=== PATIENT | male | born 1975 | race Caucasian/White ===

== ENCOUNTER 2018-01-28 13:39 | Emergency (ER) | payer MEDICAID ==
[~2018-01-28 13:39] MED LIST: ALLO100 PO; ATEN1TAB71 PO; Artane PO; DARV PO; DULO20 PO; FOLI1TAB PO; KCL PO; LORA10TA7 PO; PROT40TA PO; RISP2TAB2 PO
[2018-01-28 14:23] VITALS: BP 166/99; PULSE 118; RESP 20; TEMP 102.8; O2SAT 97
[2018-01-28] MEDS ORDERED: ACETAMINOPHEN 500 MG CPLT PO ONE (14:30)
[2018-01-28 16:41] LABS: AUTOMATED NEUTROPHIL # 10.8 TH/MM3 (1.8-7.7); BASOPHIL % 0.1 % (0.0-2.0); EOSINOPHIL # 0.1 TH/MM3 (0-0.4); EOSINOPHIL % 0.8 % (0.0-4.0); HEMATOCRIT 32.5 % (39.0-51.0); LYMPH % 6.3 % (9.0-44.0); LYMPHOCYTE # 0.8 TH/MM3 (1.0-4.8); MEAN CELL VOLUME 84.4 FL (80.0-100.0); MEAN CORPUSCULAR HEMOGLOBIN 28.7 PG (27.0-34.0); MEAN PLATELET VOLUME 7.6 FL (7.0-11.0); MONO % 3.8 % (0.0-8.0); MONOCYTE # 0.5 TH/MM3 (0-0.9); PLATELET COUNT 213 TH/MM3 (150-450); RED BLOOD COUNT 3.85 MIL/MM3 (4.50-5.90); RED CELL DISTRIBUTION WIDTH 14.2 % (11.6-17.2); WHITE BLOOD COUNT 12.2 TH/MM3 (4.0-11.0)
[2018-01-28 17:03] LABS: ALBUMIN 3.5 GM/DL (3.4-5.0); ALT (GPT) 29 U/L (12-78); AST (GOT) 37 U/L (15-37); BICARBONATE 26.6 MEQ/L (21.0-32.0); BLOOD UREA NITROGEN 14 MG/DL (7-18); CHLORIDE 102 MEQ/L (98-107); CREATININE 1.65 MG/DL (0.60-1.30); GLOMERULAR FILTRATION RATE 46 ML/MIN (>89); GLUCOSE,RANDOM 168 MG/DL (74-106); SODIUM (NA) 136 MEQ/L (136-145)
[2018-01-28 17:06] LABS: LACTIC ACID SEPSIS PROTOCOL 2.1 mmol/L (0.4-2.0)
[2018-01-28 17:06] LABS: ALKALINE PHOSPHATASE 68 U/L (45-117); TOTAL BILIRUBIN ADULT 0.3 MG/DL (0.2-1.0); TOTAL PROTEIN 8.7 GM/DL (6.4-8.2)
[2018-01-28 17:07] LABS: BILIRUBIN, URINE NEG (NEG); BLOOD, URINE SMALL (NEG); GLUCOSE,URINE TRACE mg/dL (NEG); KETONE, URINE NEG (NEG); MUCUS URINE FEW /lpf (OCC); NITRITE,URINE NEG (NEG); SQUAMOUS EPITHELIAL CELL URINE <1 /hpf (0-5); URINE COLOR YELLOW (YELLW/STRAW); URINE LEUKOCYTE ESTERASE NEG (NEG)
[2018-01-28] MEDS ORDERED: CARB200T (20:01)
[2018-01-28] MEDS ORDERED: DULO1CAP3 PO (20:01)
[2018-01-28] MEDS ORDERED: AMLO5TAB2 PO (20:01)
[2018-01-28] MEDS ORDERED: CYCL5TAB PO (20:01)
[2018-01-28] MEDS ORDERED: TRIH2 PO (20:01)
[2018-01-28] MEDS ORDERED: FENO145T2 PO (20:01)
[2018-01-28] MEDS ORDERED: FOLI1TAB6 (20:01)
[2018-01-28] MEDS ORDERED: ALLO300T2 PO (20:01)
[2018-01-28] MEDS ORDERED: SODIUM CHLOR 0.9% 1000 ML INJ 1,000 ML IV SCH (20:16)
[2018-01-28] MEDS ORDERED: SODIUM CHLORIDE 0.9% FLUSH 10 ML FLUSH IV FLUSH PRN (20:30)
[2018-01-28] MEDS ORDERED: IOHEXOL 350 MG/ML 10 ML VIAL (for RAD DIAG) IVCONTRAST ONE (21:00)
--- NOTE | 2018-01-28 21:09 | RADRPT ---
EXAM DATE/TIME: 01/28/2018 20:23 [facility] COMPARISON: No previous studies available for comparison. INDICATIONS : Fever MEDICAL HISTORY : Hypertension. Diabetes mellitus type II. SURGICAL HISTORY : None. ENCOUNTER: Initial ACUITY: 1 day PAIN SCORE: 0/10 LOCATION: chest FINDINGS: A single view of the chest demonstrates the lungs to be symmetrically aerated without evidence of mas s, infiltrate or effusion. The cardiomediastinal contours are unremarkable. Osseous structures are intact. CONCLUSION: The lungs are clear. Rafi Yanes MD on January 28, 2018 at 21:08 Board Certified Radiologist. This report was verified electronically.
--- NOTE | 2018-01-28 21:49 | RADRPT ---
EXAM DATE/TIME: 01/28/2018 20:57 [facility] COMPARISON: No previous studies available for comparison. INDICATIONS : Abdominal pain. IV CONTRAST: 84 cc Omnipaque 350 (iohexol) IV ORAL CONTRAST: No oral contrast ingested. RADIATION DOSE: 16.80 CTDIvol (mGy) MEDICAL HISTORY : None SURGICAL HISTORY : Hernia repair ENCOUNTER: Initial ACUITY: 1 day PAIN SCALE: 6/10 LOCATION: abdomen TECHNIQUE: Volumetric scanning of the abdomen and pelvis was performed. Using automated exposure control and ad justment of the mA and/or kV according to patient size, radiation dose was kept as low as reasonably achievable to obtain optimal diagnostic quality images. DICOM format image data is available electro nically for review and comparison. FINDINGS: LOWER LUNGS: The visualized lower lungs are clear. LIVER: Homogeneous density without focal lesion; the overall density of the liver is less than the spleen ch aracteristic of diffuse fatty change.. There is no dilation of the biliary tree. No calcified galls tones. SPLEEN: Normal size without lesion. PANCREAS: Within normal limits. KIDNEYS: Normal in size and shape. There is no mass, stone or hydronephrosis. ADRENAL GLANDS: Within normal limits. VASCULAR: There is no aortic aneurysm. BOWEL/MESENTERY: The stomach, small bowel, and colon demonstrate no acute abnormality. There is no free intraperitone al air or fluid. ABDOMINAL WALL: Within normal limits. RETROPERITONEUM: There is no lymphadenopathy. BLADDER: No wall thickening or mass. REPRODUCTIVE: Within normal limits. INGUINAL: There is no lymphadenopathy or hernia. MUSCULOSKELETAL: Gaseous structures are intact. 2.6 cm subcutaneous soft tissue density about the lateral left glutea l region, deep to Samuel's fascia. CONCLUSION: 1. Steatosis of the liver. 2. Subcutaneous soft tissue opacity about the lateral left gluteal region measuring 2.6 cm. Rafi Yanes MD on January 28, 2018 at 21:44 Board Certified Radiologist. This report was verified electronically.
--- NOTE | 2018-01-28 21:52 | PD ---
HPI Chief Complaint: Fever Time Seen by Provider: 19:58 Travel History International Travel<30 days: No Contact w/Intl Traveler<30days: No Traveled to known affect area: No History of Present Illness HPI 42-year-old male arrives by private vehicle. Patient reports 1 day of fever and generalized body aches and pains. He notes knocking his head causing a mild contusion a few hours prior. He has had no loss of consciousness. He denies neurologic complaints otherwise. He has had no nausea or vomiting. He denies modifying factor. Pt reports to triage provider low back pain in setting of chronic low back pain. PFSH Past Medical History Asthma: No Autoimmune Disease: No Blood Disorders: No Depression: Yes Heart Rhythm Problems: Yes (heart murmur) Cancer: No Cardiovascular Problems: Yes (HEART MUMUR) High Cholesterol: No Chemotherapy: No Chest Pain: No Congestive Heart Failure: No COPD: No Cerebrovascular Accident: No Diminished Hearing: No Endocrine: No Glaucoma: No Gout: Yes Genitourinary: No Headaches: No Hypertension: Yes Immune Disorder: No Inguinal Hernia: Yes (hernia surgery as a child) Kidney Stones: No Musculoskeletal: Yes Neurologic: No Psychiatric: No Reproductive: No Respiratory: No Migraines: No Myocardial Infarction: No Radiation Therapy: No Renal Failure: No Schizophrenia: Yes Seizures: Yes Sickle Cell Disease: No Sleep Apnea: No Tetanus Vaccination: < 5 Years Influenza Vaccination: No Past Surgical History Abdominal Surgery: No AICD: No Arteriovenous Shunt: No Cardiac Surgery: No Ear Surgery: No Endocrine Surgery: No Eye Surgery: No Genitourinary Surgery: Yes Gynecologic Surgery: No Insulin Pump: No Joint Replacement: No Oral Surgery: No Pacemaker: No Thoracic Surgery: No Other Surgery: Yes (hernia surgery as a child) Family History Family Hypercholesterolemia: Yes Social History Alcohol Use: No Tobacco Use: No Substance Use: Yes Allergies-Medications (Allergen,Severity, Reaction): Coded Allergies: No Known Allergies (Verified Allergy, Severe, ANESTHESIA MEDS ???, 07/31/08) Uncoded Allergies: ANESTHESIA MEDS (Allergy, Mild, 07/31/08) SLEEPING SYRUP (Allergy, Mild, 07/31/08) Reported Meds & Prescriptions Reported Meds & Active Scripts Active Tamiflu (Oseltamivir Phosphate) 75 Mg Cap 75 Mg PO BID 5 Days Reported Folic Acid 1 Mg Tablet Allopurinol 300 Mg Tab 300 Mg PO DAILY Fenofibrate 145 Mg Tab 145 Mg PO DAILY Carbamazepine 200 Mg Tab 200 Mg BID Trihexyphenidyl (Trihexyphenidyl HCl) 2 Mg Tab 2 Mg PO DAILY Duloxetine DR (Duloxetine HCl) 60 Mg Capdr 60 Mg PO DAILY Flexeril (Cyclobenzaprine HCl) 5 Mg Tab 5 Mg PO TID Amlodipine (Amlodipine Besylate) 5 Mg Tab 5 Mg PO DAILY Review of Systems Except as stated in HPI: all other systems reviewed are Neg General / Constitutional: Positive: Fever Physical Exam Narrative GENERAL: Well-nourished well-developed 42-year-old male no acute distress resting comfortably in the bed Vital Signs Date Time Temp Pulse Resp B/P (MAP) Pulse Ox O2 Delivery O2 Flow Rate FiO2 01/28/18 14:23 102.8 118 20 166/99 (121) 97 SKIN: Warm and dry. HEAD: Atraumatic. Normocephalic. EYES: Pupils equal and round. No scleral icterus. No injection or drainage. ENT: No nasal bleeding or discharge. Mucous membranes pink and moist. Posterior oropharynx pink. NECK: Trachea midline. No JVD. CARDIOVASCULAR: Tachycardic. Regular rhythm. RESPIRATORY: No accessory muscle use. Clear to auscultation. Breath sounds equal bilaterally. GASTROINTESTINAL: Abdomen soft, non-tender, nondistended. Hepatic and splenic margins not palpable. MUSCULOSKELETAL: Extremities without clubbing, cyanosis, or edema. No obvious deformities. NEUROLOGICAL: Awake and alert. No obvious cranial nerve deficits. Motor grossly within normal limits. Five out of 5 muscle strength in the arms and legs. Normal speech. PSYCHIATRIC: Appropriate mood and affect; insight and judgment normal. Data Data Last Documented VS Vital Signs Date Time Temp Pulse Resp B/P (MAP) Pulse Ox O2 Delivery O2 Flow Rate FiO2 01/28/18 22:15 01/28/18 21:54 100.6 90 18 96 Room Air Orders Orders Complete Blood Count With Diff (01/28/18 14:25) Comprehensive Metabolic Panel (01/28/18 14:25) Lipase (01/28/18 14:25) Urinalysis - C+S If Indicated (01/28/18 14:25) Influenzae A/B Antigen (01/28/18 14:25) Acetaminophen (Tylenol) (01/28/18 14:30) Lactic Acid Sepsis Protocol (01/28/18 14:26) Blood Culture (01/28/18 14:26) Chest, Single Ap (01/28/18 ) Ct Abd/Pel W Iv Contrast(Rout) (01/28/18 20:16) Iv Access Insert/Monitor (01/28/18 20:16) Ecg Monitoring (01/28/18 20:16) Oximetry (01/28/18 20:16) Sodium Chlor 0.9% 1000 Ml Inj (Ns 1000 M (01/28/18 20:16) Sodium Chloride 0.9% Flush (Ns Flush) (01/28/18 20:30) Iohexol 350 Inj (Omnipaque 350 Inj) (01/28/18 21:00) Ed Discharge Order (01/28/18 21:57) Oseltamivir (Tamiflu) (01/28/18 22:00) Labs Laboratory Tests Test 01/28/18 00:00 01/28/18 15:53 01/28/18 15:55 01/28/18 21:55 Lactic Acid Level 2.1 mmol/L 1.1 mmol/L White Blood Count 12.2 TH/MM3 Red Blood Count 3.85 MIL/MM3 Hemoglobin 11.0 GM/DL Hematocrit 32.5 % Mean Corpuscular Volume 84.4 FL Mean Corpuscular Hemoglobin 28.7 PG Mean Corpuscular Hemoglobin Concent 34.0 % Red Cell Distribution Width 14.2 % Platelet Count 213 TH/MM3 Mean Platelet Volume 7.6 FL Neutrophils (%) (Auto) 89.0 % Lymphocytes (%) (Auto) 6.3 % Monocytes (%) (Auto) 3.8 % Eosinophils (%) (Auto) 0.8 % Basophils (%) (Auto) 0.1 % Neutrophils # (Auto) 10.8 TH/MM3 Lymphocytes # (Auto) 0.8 TH/MM3 Monocytes # (Auto) 0.5 TH/MM3 Eosinophils # (Auto) 0.1 TH/MM3 Basophils # (Auto) 0.0 TH/MM3 CBC Comment DIFF FINAL Differential Comment Blood Urea Nitrogen 14 MG/DL Creatinine 1.65 MG/DL Random Glucose 168 MG/DL Total Protein 8.7 GM/DL Albumin 3.5 GM/DL Calcium Level 9.0 MG/DL Alkaline Phosphatase 68 U/L Aspartate Amino Transf (AST/SGOT) 37 U/L Alanine Aminotransferase (ALT/SGPT) 29 U/L Total Bilirubin 0.3 MG/DL Sodium Level 136 MEQ/L Potassium Level 3.9 MEQ/L Chloride Level 102 MEQ/L Carbon Dioxide Level 26.6 MEQ/L Anion Gap 7 MEQ/L Estimat Glomerular Filtration Rate 46 ML/MIN Lipase 139 U/L Urine Color YELLOW Urine Turbidity CLEAR Urine pH 6.0 Urine Specific [place] 1.014 Urine Protein 300 mg/dL Urine Glucose (UA) TRACE mg/dL Urine Ketones NEG mg/dL Urine Occult Blood SMALL Urine Nitrite NEG Urine Bilirubin NEG Urine Urobilinogen LESS THAN 2.0 MG/DL Urine Leukocyte Esterase NEG Urine RBC 1 /hpf Urine WBC 1 /hpf Urine Squamous Epithelial Cells <1 /hpf Urine Mucus FEW /lpf Microscopic Urinalysis Comment CATH-CULT NOT IND MDM Medical Decision Making Medical Screen Exam Complete: Yes Emergency Medical Condition: Yes Medical Record Reviewed: Yes Differential Diagnosis Sepsis, influenza, pneumonia, UTI Narrative Course CBC & BMP Diagram 01/28/18 15:53 Total Protein 8.7 H, Albumin 3.5, Calcium Level 9.0, Alkaline Phosphatase 68, Aspartate Amino Transf (AST/SGOT) 37, Alanine Aminotransferase (ALT/SGPT) 29, Total Bilirubin 0.3 Influenza is negative Lactic acid 2.1 which is most likely in keeping with tourniquet time as blood was drawn outside the triage process. Last Impressions Abdomen/Pelvis CT 01/28/182015 Signed Impressions: Service Date/Time: Sunday, January 28, 2018 20:57 - CONCLUSION: 1. Steatosis of the liver. 2. Subcutaneous soft tissue opacity about the lateral left gluteal region measuring 2.6 cm. Rafi Yanes MD Chest X-Ray 01/28/18 0000 Signed Impressions: Service Date/Time: Sunday, January 28, 2018 20:23 - CONCLUSION: The lungs are clear. Rafi Yanes MD Etiology of the fever is unclear at this time. Possible false-negative influenza assay is of concern. Tamiflu prescription. The patient is otherwise quite well in appearance and considered suitable for discharge with good understanding return precautions. Pt verbalized understanding of plan as well as return precautions. Diagnosis Primary Impression: Fever and chills Additional Impression: Myalgia Referrals: Primary Care Physician 2 days Med/Other Pt SpecificInfo: Prescription(s) given Scripts Oseltamivir (Tamiflu) 75 Mg Cap 75 MG PO BID for Mgmt Viral Infection for 5 Days, #10 CAP 0 Refills Prov: Prashanth Ravi MD 01/28/18 Disposition: 01 DISCHARGE HOME Condition: Stable Prashanth Ravi MD Jan 28, 2018 21:52
[2018-01-28 21:54] VITALS: BP 134/76; PULSE 90; RESP 18; TEMP 100.6; O2SAT 96
[2018-01-28] MEDS ORDERED: OSEL75 PO (21:56)
[2018-01-28] MEDS ORDERED: OSELTAMIVIR PHOSPHATE 75 MG CAP PO ONE (22:00)
== END 2018-01-28 22:16 | disposition home or self-care (01) ==
LOC: NEPD 13:39
DX: R50.9 Fever, unspecified (principal); M79.1 Myalgia; G89.29 Other chronic pain; M54.5 Low back pain; R01.1 Cardiac murmur, unspecified; I10 Essential (primary) hypertension; R56.9 Unspecified convulsions; F20.9 Schizophrenia, unspecified
CPT/HCPCS: 71045; 74177; 80053; 81001; 83605; 83690; 85025; 87804; 96360; 99285; J7030; Q9967